=== PATIENT | male | born 1995 | race Caucasian/White ===

== ENCOUNTER 2016-12-01 15:00 | Emergency (ER) | payer MEDICAID, OTHER ==
[~2016-12-01] VITALS: Ht 172.7 cm; Wt 67.0 kg
[2016-12-01] MEDS ORDERED: SODIUM CHLORIDE FLUSH 10ML SYR IVF ONE (15:30)
[2016-12-01] MEDS ORDERED: SODIUM CHLORIDE 0.9% 1,000ML IVBOLUS ONE (15:30)
[2016-12-01] MEDS ORDERED: LORazepam 2 MG/ML, 1ML IVPush ONE (15:30)
[2016-12-01] MEDS ORDERED: ONDANSETRON 2MG/ML, 2ML IVPush ONE (15:30)
[2016-12-01] MEDS ORDERED: LISD40CA PO (15:33)
[2016-12-01] MEDS ORDERED: LORazepam 2 MG/ML, 1ML ONE (16:00)
[2016-12-01] MEDS ORDERED: ONDANSETRON 2MG/ML, 2ML ONE (16:00)
[2016-12-01] MEDS ORDERED: MORPHINE SULFATE 4 MG/ML, 1ML ONE ×2 (16:00→16:55)
[2016-12-01] MEDS: MORPHINE SULFATE 4 MG/ML, 1ML IVPush PRN ×2 (16:03→16:58)
[2016-12-01 16:22] LABS: BLOOD UREA NITROGEN 9 mg/dL (7-18)
[2016-12-01 16:27] LABS: ASPARTATE AMINO TRANSFERASE 145 U/L (15-37)
[2016-12-01 16:45] LABS: IS PT STATUS REG ER OR PRE ER? YES
[2016-12-01] MEDS ORDERED: KETOROLAC 30 MG/1 ML ONE (18:45)
[2016-12-01] MEDS ORDERED: KETOROLAC 30 MG/1 ML IVPush ONE (19:00)
[2016-12-01] MEDS ORDERED: OMNIPAQUE 350 MG/ML, 100ML BOTTLE ONE (19:12)
[2016-12-01 19:39] VITALS: BP 142/84
[2016-12-02] MEDS ORDERED: OXYC-302 PO (13:39)
== END 2016-12-01 20:46 | disposition home or self-care (01) ==
LOC: ED 17:20
DX: R07.89 Other chest pain (principal); M62.82 Rhabdomyolysis; F10.10 Alcohol abuse, uncomplicated
CPT/HCPCS: 36415; 71010; 71275; 80053; 80307; 82550; 83605; 83690; 84484; 85025; 85379; 93005; 96361; 96374; 96375; 96376; 99285; J1885; J2060; J2405; J7030; Q9967